=== PATIENT | male | born 1975 | race Two or more races ===

== ENCOUNTER 2022-01-24 22:05 | Emergency (ER) | payer BC, OTHER ==
[~2022-01-24] VITALS: Ht 165.1 cm; Wt 79.5 kg
[2022-01-24 23:13] VITALS: BP 124/76
[2022-01-25] MEDS ORDERED: KETOROLAC TROMETH 60MG/2ML VIAL IM ONE (02:15)
[2022-01-25] MEDS ORDERED: MAGNESIUM CITRATE SOLUTION 300 ML BTL PO ONE (02:15)
[2022-01-25 02:16] LABS: Urine Bacteria NONE SEEN /hpf (None Seen); Urine Blood Negative /uL (Negative); Urine Specific Gravity 1.013 (1.001-1.035); Urine WBC <1 /hpf (0 - 3)
[2022-01-25] MEDS ORDERED: MAGNSOL PO (02:47)
== END 2022-01-25 03:38 | disposition home or self-care (01) ==
LOC: ER 22:05
DX: K59.00 Constipation, unspecified (principal)
CPT/HCPCS: 74018; 81001; 96372; 99284; J1885

== ENCOUNTER 2022-01-28 12:52 | Emergency (ER) | payer BC ==
[~2022-01-28] VITALS: Ht 165.1 cm; Wt 75.0 kg
[~2022-01-28 12:52] MED LIST: MAGNSOL PO
[2022-01-28 13:30] VITALS: BP 114/65
[2022-01-28] MEDS ORDERED: HYDR2.5C39 TOP (14:04)
[2022-01-28 15:46] LABS: Eosinophils # (auto) 0.1 10 ^3/uL (0-0.8); Eosinophils % (auto) 0.5 % (0.0-7.0); INR 0.97 (0.9-1.15); Lymphocytes # (auto) 2.6 10 ^3/uL (0.4-5.4); Nucleated Red Blood Cells % 0.3 %
[2022-01-28 15:51] LABS: Basophils # (auto) 0.1 10 ^3/uL (0-0.2); Basophils % (auto) 0.8 % (0.0-2.0); Hematocrit 39.2 % (41.0-53.0); Hemoglobin 13.2 g/dL (13.5-17.5); Lymphocytes % (auto) 16.2 % (10.0-50.0); Mean Corpuscular Hemoglobin 28.8 pg (28.0-32.0); Mean Corpuscular Hgb Conc. 33.7 g/dL (32.0-36.0); Mean Corpuscular Volume 85.3 fL (80.0-100.0); Monocytes % (auto) 6.5 % (0.0-12.0); Red Blood Cells 4.59 10^6/uL (4.5-5.90); White Blood Cell 15.8 10^3/uL (4.4-10.8)
[2022-01-28 19:17] LABS: Albumin 3.8 g/dL (3.4-5.0); BUN/Creatinine Ratio 20.5; Calcium 9.4 mg/dL (8.5-10.1)
[2022-01-28 19:19] LABS: Bilirubin, Total 0.6 mg/dL (0.2-1.0); Total Protein 8.2 g/dL (6.4-8.2)
== END 2022-01-28 15:32 | disposition home or self-care (01) ==
LOC: ER 12:52
DX: K64.9 Unspecified hemorrhoids (principal)
CPT/HCPCS: 36415; 74176; 80053; 85025; 85610; 85730